=== PATIENT | female | born 2000 | race Caucasian/White ===

== ENCOUNTER 2019-02-02 22:42 | Emergency (ER) | payer BC ==
[~2019-02-02] VITALS: Ht 154.9 cm; Wt 86.6 kg
[2019-02-03 01:00] VITALS: BP 122/79
== END 2019-02-03 03:34 | disposition home or self-care (01) ==
LOC: ED 02-03 00:39
DX: B37.3 Candidiasis of vulva and vagina (principal); R10.31 Right lower quadrant pain
CPT/HCPCS: 36415; 80053; 81003; 84703; 85025; 87210; 87491; 87591; 87808; 99283